=== PATIENT | female | born 1990 | race Hispanic/Latino ===

== ENCOUNTER 2017-10-19 03:20 | Emergency (ER) | payer SELFPAY ==
[2017-10-19 03:45] VITALS: BP 152/97
[2017-10-19 07:52] LABS: HCG Qualitative,Urine Negative (Negative)
[2017-10-19 08:09] LABS: Bacteria,Urine 1+ /HPF (Negative); Bilirubin,Urine NEG (Negative); Blood,Urine NEG (Negative); Color,Urine Yellow (Yellow); Mucus,Urine 2+ /HPF; Nitrite,Urine NEG (Negative); Protein,Urine <15 mg/dL mg/dL (Negative); Urobilinogen,Urine < 2.0 mg/dL (<2.0)
== END 2017-10-19 04:30 | disposition left against medical advice (07) ==
LOC: ED 03:20
DX: Z53.21 Procedure and treatment not carried out due to patient leaving prior to being seen by health care provider (principal)
CPT/HCPCS: 81001; 81025